=== PATIENT | male | born 1975 | race Caucasian/White ===

== ENCOUNTER → 2023-01-31 | Outpatient (CLI) | payer OTHER | LOC: M RAD 14:51 | PROVIDERS: ATTEND Physician Assistant Medical | DX: M79.662 Pain in left lower leg (principal) ==

== ENCOUNTER → 2023-02-04 | Outpatient (CLI) | payer OTHER | LOC: M RAD 12:06 | PROVIDERS: ATTEND Family Medicine Addiction Medicine | DX: M25.562 Pain in left knee (principal) ==

== ENCOUNTER → 2023-02-27 | Outpatient (REF) | payer OTHER | LOC: M LAB REF 11:34 | PROVIDERS: ATTEND Family Medicine Addiction Medicine | DX: E66.3 Overweight (principal) ==

== ENCOUNTER 2023-03-07 08:07 | Outpatient (RCR) | payer OTHER | END 2023-03-20 | LOC: M PT 08:07 | PROVIDERS: ATTEND Family Medicine Addiction Medicine | DX: M25.562 Pain in left knee (principal) ==

== ENCOUNTER → 2023-04-28 | Outpatient (REF) | payer OTHER ==
[2023-04-28 17:54] LABS: CHLAMYDIA DNA AMPLIFICATION NEGATIVE (NEGATIVE); GC DNA AMPLIFICATION NEGATIVE (NEGATIVE)
== END ==
LOC: M LAB REF 15:59
PROVIDERS: ATTEND Family Medicine Addiction Medicine
DX: Z20.2 Contact with and (suspected) exposure to infections with a predominantly sexual mode of transmission (principal)

== ENCOUNTER → 2023-04-28 | Outpatient (REF) | payer OTHER ==
[2023-04-28 17:20] LABS: HIV 1&2 SCREEN NEGATIVE (NEGATIVE)
[2023-04-28 17:27] LABS: HEPATITIS C VIRUS ABY INDEX < 0.02 INDEX (<0.8)
== END ==
LOC: M LAB REF 16:08
PROVIDERS: ATTEND Family Medicine Addiction Medicine
DX: Z20.2 Contact with and (suspected) exposure to infections with a predominantly sexual mode of transmission (principal)

== ENCOUNTER → 2023-07-22 | Outpatient (REF) | payer OTHER ==
[2023-07-22 13:58] LABS: BASO % 0.3 % (0.0-1.0); EOS # 0.3 10^3/uL (0.0-0.5); HEMATOCRIT 45.9 % (42.0-52.0); HEMOGLOBIN 15.7 g/dl (13.5-17.5); LYMPH # 2.5 10^3/uL (1.5-5.0); LYMPH % 37.7 % (24.0-44.0); MEAN CORPUSCULAR HEMOGLOBIN 28.9 pg (27.0-33.0); MEAN CORPUSCULAR HGB CONC 34.2 g/dl (32.0-36.5); MEAN CORPUSCULAR VOLUME 84.4 fl (80.0-96.0); MONO # 0.6 10^3/uL (0.0-0.8); MONO % 8.7 % (2.0-8.0); NEUTROPHILS # 3.2 10^3/uL (1.5-8.5); NEUTROPHILS % 48.8 % (36.0-66.0); PLATELET COUNT, AUTOMATED 176 10^3/uL (150-450); RED BLOOD COUNT 5.44 10^6/uL (4.30-6.10); WHITE BLOOD COUNT 6.6 10^3/uL (4.0-10.0)
[2023-07-22 14:16] LABS: ALBUMIN 4.1 G/DL (3.2-5.2); ALKALINE PHOSPHATASE 56 U/L (46-116); ALT/SGPT 23 U/L (7.0-40); AST/SGOT 15 U/L (<34); BILIRUBIN,TOTAL 0.3 MG/DL (0.3-1.2); BLOOD UREA NITROGEN 15 MG/DL (9-23); CALCIUM LEVEL 9.3 MG/DL (8.5-10.1); CARBON DIOXIDE LEVEL 27 MMOL/L (20-31); CHLORIDE LEVEL 105 MMOL/L (98-107); CHOLESTEROL LEVEL 201 MG/DL (<200); CHOLESTEROL RISK RATIO 5.55 (<5); CREATININE FOR GFR 1.14 MG/DL (0.70-1.30); GLOMERULAR FILTRATION RATE > 60.0 (>56); GLUCOSE, FASTING 102 MG/DL (60-100); HDL CHOLESTEROL 36.2 MG/DL (>40); LDL CHOLESTEROL 124.8 MG/DL (<100); NON-HDL-C 164.8 MG/DL; POTASSIUM SERUM 4.3 MMOL/L (3.5-5.1); SODIUM LEVEL 140 MMOL/L (136-145); TOTAL PROTEIN 6.6 G/DL (5.7-8.2); TRIGLYCERIDES LEVEL 200 MG/DL (<150)
[2023-07-22 14:19] LABS: THYROID STIMULATING HORMONE 4.938 uIU/ML (0.55-4.78)
[2023-07-22 14:20] LABS: TESTOSTERONE 768 NG/DL (241-827)
== END ==
LOC: M LAB REF 11:51
PROVIDERS: ATTEND Family Medicine Addiction Medicine
DX: E66.3 Overweight (principal)

== ENCOUNTER → 2023-07-25 | Outpatient (REF) | payer OTHER ==
[2023-07-25 13:33] LABS: THYROID STIMULATING HORMONE 2.738 uIU/ML (0.55-4.78)
== END ==
LOC: M LAB REF 11:30
PROVIDERS: ATTEND Nurse Practitioner Family
DX: R89.1 Abnormal level of hormones in specimens from other organs, systems and tissues (principal)

== ENCOUNTER → 2023-09-11 | Outpatient (REF) | payer OTHER ==
[2023-09-11 14:28] LABS: BASO % 0.3 % (0.0-1.0); EOS # 0.2 10^3/uL (0.0-0.5); EOS % 2.9 % (0.0-3.0); HEMATOCRIT 48.1 % (42.0-52.0); HEMOGLOBIN 16.1 g/dl (13.5-17.5); LYMPH # 2.2 10^3/uL (1.5-5.0); LYMPH % 31.5 % (24.0-44.0); MEAN CORPUSCULAR HGB CONC 33.5 g/dl (32.0-36.5); MEAN CORPUSCULAR VOLUME 83.5 fl (80.0-96.0); MONO # 0.6 10^3/uL (0.0-0.8); MONO % 8.5 % (2.0-8.0); NEUTROPHILS # 3.9 10^3/uL (1.5-8.5); NEUTROPHILS % 56.5 % (36.0-66.0); PLATELET COUNT, AUTOMATED 175 10^3/uL (150-450); RED BLOOD COUNT 5.76 10^6/uL (4.30-6.10); WHITE BLOOD COUNT 6.8 10^3/uL (4.0-10.0)
[2023-09-11 14:29] LABS: C REACTIVE PROTEIN QUANTITATIV < 0.40 MG/DL (<1.0); RHEUMATOID FACTOR QUANT 6.3 IU/ML (<14)
[2023-09-11 14:30] LABS: ALBUMIN 4.7 G/DL (3.2-5.2); ALKALINE PHOSPHATASE 69 U/L (46-116); ALT/SGPT 27 U/L (7.0-40); AST/SGOT 19 U/L (<34); BILIRUBIN,TOTAL 0.6 MG/DL (0.3-1.2); BLOOD UREA NITROGEN 16 MG/DL (9-23); CALCIUM LEVEL 9.7 MG/DL (8.5-10.1); CARBON DIOXIDE LEVEL 29 MMOL/L (20-31); CHLORIDE LEVEL 104 MMOL/L (98-107); CREATININE FOR GFR 1.22 MG/DL (0.70-1.30); GLOMERULAR FILTRATION RATE > 60.0 (>56); GLUCOSE, FASTING 107 MG/DL (60-100); POTASSIUM SERUM 4.5 MMOL/L (3.5-5.1); SODIUM LEVEL 139 MMOL/L (136-145); TOTAL PROTEIN 7.2 G/DL (5.7-8.2)
[2023-09-11 14:33] LABS: ERYTHROCYTE SEDIMENTATION RATE 4 mm/hr (0-20)
[2023-09-12 23:28] LABS: ANA (HEP2) Negative (.); CYCLIC CITRULLINATED PEPTIDE 5 units (0-19); SSA SJOGRENS A <0.2 AI (0.0-0.9); SSB SJOGRENS B <0.2 AI (0.0-0.9)
== END ==
LOC: M LAB REF 12:30
PROVIDERS: ATTEND Physician Assistant
DX: R21 Rash and other nonspecific skin eruption (principal)